=== PATIENT | female | born 1990 | race Caucasian/White ===

== ENCOUNTER 2017-01-14 11:15 | Inpatient (IN) | payer OTHER ==
[2017-01-14 12:04] LABS: % IMMATURE GRANULYOCYTES 0.2 % (0.0-1.1); ABSOLUTE IMMATURE GRANULOCYTES 0.01 10^3/uL (0.00-0.10); ADD DIFF? NO; ADD MORPH? NO; ADD SCAN? NO; ATYPICAL LYMPHOCYTE FLAG 0 (0-99); FRAGMENT RBC FLAG 0 (0-99); HEMATOCRIT 41.2 % (38.0-47.0); LEFT SHIFT FLG 0 (0-99); LIPEMIA HEMOLYSIS FLAG 90 (0-99); MEAN CELL HEMOGLOBIN 29.9 pg (27.9-34.1); MEAN PLATELET VOLUME 9.9 fL (8.7-11.7); PLATELET CLUMPS FLAG 0 (0-99); PLATELET COUNT 239 10^3/uL (150-400); RED BLOOD CELL COUNT 4.68 10^6/uL (4.18-5.33); RED CELL DISTRIBUTION WIDTH 12.7 % (11.5-15.2)
[2017-01-14 12:22] LABS: ANION GAP 10 mEq/L (8-16); CALCIUM 9.6 mg/dL (8.5-10.4); CARBON DIOXIDE 24 mEq/l (22-31); CHLORIDE 105 mEq/L (97-110); CREATININE 0.7 mg/dL (0.6-1.0); ETHANOL SERUM < 10 mg/dL (0-10); GLOMERULAR FILTRATION RATE > 60; GLUCOSE 88 mg/dL (70-100); POTASSIUM 4.2 mEq/L (3.5-5.2); SALICYLATE < 1.0 mg/dL (2.0-20.0); SODIUM 139 mEq/L (134-144)
--- NOTE | 2017-01-14 12:28 | EDPHY ---
H & P HPI/ROS: CHIEF COMPLAINT: Depression, suicidal ideation HISTORY OF PRESENT ILLNESS: Patient is a 26-year-old female who presents emergency department with suicidal thoughts. She states she has been having worsening depression since October. Her suicidal ideation has worsened over the past 1-2 weeks. She has thought about taking an overdose of Seroquel. She has medication left over from a previous hospital admission. She denies any current ingestion or self-harm. She saw her therapist this morning who placed on a mental health hold. REVIEW OF SYSTEMS: My complete review of systems is negative except as mentioned in the HPI. Past Medical/Surgical History: Includes depression and anxiety Smoking Status: Never smoked Physical Exam: Vitals noted GENERAL: Well-appearing, in no acute distress, alert. HEENT: Eyes normal to inspection, normal pharynx, no signs of dehydration. NECK: No thyromegaly, no lymphadenopathy, supple. RESPIRATORY: Clear to auscultation bilaterally, no rales, rhonchi or wheezing. CVS: Regular rate and rhythm, no rubs, murmurs, or gallops. ABDOMEN: Soft, nontender, nondistended, no organomegaly. BACK: Normal to inspection, no CVA tenderness. SKIN: Normal color, warm, dry. No pallor. Patient has a rash on the palm of both hands. This is eczema like. (patient states that the partially from products she uses at work) EXTREMITIES: No pedal edema, no calf tenderness, no Homans sign or cords, no joint swelling. NEURO/PSYCH: Alert and oriented x3, normal mood and affect, normal motor sensory exam. No obvious cranial nerve deficit. Constitutional: Initial Vital Signs Temperature (C) 36.7 C 01/14/17 11:15 Heart Rate 70 01/14/17 11:15 Respiratory Rate 18 01/14/17 11:15 Blood Pressure 137/88 H 01/14/17 11:15 O2 Sat (%) 97 01/14/17 11:15 O2 Delivery Mode Room Air Allergies/Adverse Reactions: No Known Allergies Allergy (Verified 01/14/17 11:22) Home Medications: Medication Instructions Recorded Norgestimate-Ethinyl Estradiol 1 each PO DAILY 05/11/16 [Ortho Tri-Cyclen 28 Tablet] Acetaminophen [Tylenol 325mg (*)] 325 mg PO DAILY PRN 01/14/17 Aspirin [Aspirin 325 mg (*)] 325 mg PO DAILY PRN 01/14/17 Medical Decision Making ED Course/Re-evaluation: In the emergency department I discussed the plan with the patient. I answered all of her questions. She is aware she is on a mental health hold. Laboratory studies were ordered. On recheck the patient was stable. No new complaints. Patient's laboratory studies were unremarkable. She is awaiting psychiatric evaluation. I rechecked the patient while here. She is stable. EMTALA completed. The patient will be transferred to [address] [place] [address]. Differential Diagnosis: My differential includes but is not limited to depression, suicidal ideation, ingestion, overdose, anxiety - Data Points Laboratory Results: Laboratory Results 01/14/17 11:35 01/14/17 11:35 01/14/17 01/14/17 01/14/17 11:35 11:35 11:35 WBC 6.17 10^3/uL 10^3/uL (3.80-9.50) RBC 4.68 10^6/uL 10^6/uL (4.18-5.33) Hgb 14.0 g/dL g/dL (12.6-16.3) Hct 41.2 % % (38.0-47.0) MCV 88.0 fL fL (81.5-99.8) MCH 29.9 pg pg (27.9-34.1) MCHC 34.0 g/dL g/dL (32.4-36.7) RDW 12.7 % % (11.5-15.2) Plt Count 239 10^3/uL 10^3/uL (150-400) MPV 9.9 fL fL (8.7-11.7) Neut % (Auto) 63.1 % % (39.3-74.2) Lymph % (Auto) 29.2 % % (15.0-45.0) Sutton % (Auto) 5.3 % % (4.5-13.0) Eos % (Auto) 1.1 % % (0.6-7.6) Baso % (Auto) 1.1 % % (0.3-1.7) Nucleat RBC Rel Count 0.0 % % (0.0-0.2) Absolute Neuts (auto) 3.89 10^3/uL 10^3/uL (1.70-6.50) Absolute Lymphs (auto) 1.80 10^3/uL 10^3/uL (1.00-3.00) Absolute Monos (auto) 0.33 10^3/uL 10^3/uL (0.30-0.80) Absolute Eos (auto) 0.07 10^3/uL 10^3/uL (0.03-0.40) Absolute Basos (auto) 0.07 10^3/uL 10^3/uL (0.02-0.10) Absolute Nucleated RBC 0.00 10^3/uL 10^3/uL (0-0.01) Immature Gran % 0.2 % % (0.0-1.1) Immature Gran # 0.01 10^3/uL 10^3/uL (0.00-0.10) Sodium 139 mEq/L mEq/L (134-144) Potassium 4.2 mEq/L mEq/L (3.5-5.2) Chloride 105 mEq/L mEq/L (97-110) Carbon Dioxide 24 mEq/l mEq/l (22-31) Anion Gap 10 mEq/L mEq/L (8-16) BUN 12 mg/dL mg/dL (7-23) Creatinine 0.7 mg/dL mg/dL (0.6-1.0) Estimated GFR > 60 Glucose 88 mg/dL mg/dL (70-100) Calcium 9.6 mg/dL mg/dL (8.5-10.4) Salicylates < 1.0 mg/dL L mg/dL (2.0-20.0) Urine Opiates Screen NEGATIVE (NEGATIVE) Acetaminophen < 10 mcg/mL L mcg/mL (10.0-30.0) Urine Barbiturates NEGATIVE (NEGATIVE) Ur Phencyclidine Scrn NEGATIVE (NEGATIVE) Ur Amphetamine Screen NEGATIVE (NEGATIVE) U Benzodiazepines Scrn NEGATIVE (NEGATIVE) Urine Cocaine Screen NEGATIVE (NEGATIVE) U Marijuana (THC) Screen NEGATIVE (NEGATIVE) Ethyl Alcohol < 10 mg/dL mg/dL (0-10) Departure - Departure Disposition: [facility] IP Clinical Impression: Suicidal ideation Depression Qualifiers: Depression Type: unspecified Qualified Code(s): F32.9 - Major depressive disorder, single episode, unspecified Condition: Good Referrals: Darya Antonio MD [Primary Care Provider] - As per Instructions
[2017-01-14] MEDS ORDERED: OLANZapine DISINTEGR 10 MG TAB PO PRN (17:43)
[2017-01-14] MEDS ORDERED: ACETAMINOPHEN 325 MG TAB PO PRN (17:43)
[2017-01-14] MEDS ORDERED: MAGNESIUM HYDROXIDE 30 ML UDCUP PO PRN (17:43)
[2017-01-14] MEDS ORDERED: MAG HYDROX/AL HYDROX/SIMETH 30 ML UDCUP PO PRN (17:43)
[2017-01-14] MEDS ORDERED: NICOTINE POLACRILEX 2 MG GUM B PRN (17:43)
[2017-01-14] MEDS ORDERED: LORazepam 0.5 MG TAB PO PRN (17:43)
[2017-01-14] MEDS: NORETHINDRONE E ESTRADIOL IRON PO SCH (20:46)
[2017-01-15 06:20] VITALS: PULSE 80
[2017-01-15] MEDS ORDERED: NORGESTIMATE ETHINYL ESTRADIOL PO SCH (09:00)
[2017-01-15] MEDS: lamoTRIgine 25 MG TAB PO SCH (12:08)
[2017-01-15] MEDS: NORETHINDRONE E ESTRADIOL IRON PO SCH (12:09)
--- NOTE | 2017-01-15 15:45 | BAPA ---
[f rep st] ADMISSION PSYCHIATRIC ASSESSMENT DATE OF SERVICE: 01/15/2017 CHIEF COMPLAINT: "I'm really depressed and anxious. I'm overwhelmed and stressed." HISTORY OF PRESENT ILLNESS: Patient is a 26-year-old female known to me from previous admission 2 years ago, who presents on this occasion after having been referred by her outpatient therapist due to suicidal ideation. She reports feeling extremely stressed and overwhelmed recently, in large part due to work stress and lack of adequate support. 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 She states that her job has changed a lot over the last 3 years, and recently she had a number of other people installed above her where it directly affected her day-to-day working. She reports a conflict with one of these people and that this has been upsetting to her. In addition to this, her main friend at work quit, and she feels "lonely and isolated" while she is there. She states that she is worried about her own academic progress as she is not in school right now and lacks 32 credits to graduate but feels like she is making no progress. She needs to move out of her apartment due to conflicts with roommates and a sense that she just needs to make a change after having lived there for 4 years. She therefore has been looking for another apartment but is faced with some realities of needing to have other roommates in order to share the expenses. She states that she has not taken medication since June after an outpatient provider was trying different doses of Latuda. She states that she was taking Seroquel when she was here with us and after discharge noted it to be too sedating, so she saw her primary care physician, who placed her on Prozac. She states the Prozac caused her to have rapidly changing moods, and she stopped it and then saw a provider at [facility]. She states that this person placed her on Latuda, and they were adjusting doses but she felt like she was becoming more depressed, not less. For this reason, she stopped the medication and has not sought other treatment since then. She states right now, for the past month, her mood has been going down more severely and she feels helpless, hopeless, and overwhelmed. She reports an increase in suicidal rumination, where she states that she thinks about and dying frequently and has some degree of a plan to overdose on a combination of her leftover Seroquel and alcohol. She has been abstinent from alcohol for more than 6 months after getting a DWAI and having to attend alcohol education classes and do urinalyses. She reports this being an overall positive to her level of functioning and her mood but negative in the sense of some increase in her generalized anxiety. She also reports having some panic attacks at work, especially when she has a conflict with the co-worker. Her sleep has been discontinuous and non-restful. Her appetite has been decreased with a 30 pound weight loss over the last month. She complains of poor energy and motivation, anhedonia, and some difficulty with attention and concentration at work. She feels helpless and hopeless and states at this time that she is struggling to maintain any positive perspective. PAST PSYCHIATRIC HISTORY: The patient has 1 previous admission with us in July 2014 for 2 days. She was diagnosed with major depressive disorder, recurrent, severe, without psychosis at that time and treated with Seroquel. I initially admitted her but Dr. Pelayo was the person who saw her the 2nd day and started medication. It is unclear to me exactly why the Seroquel was chosen , but the patient states that it did help her sleep and did help some with her anxiety but she felt too sedated. Her recent medication history is listed above. She is no longer affiliated with [facility] as her case was closed in August 2016 due to inactivity. She is currently followed by [facility] where she sees an individual.therapist and attends alcohol education groups. She has a history of a possible overdose precipitating the admission in 2013, though it is unclear whether she actually did take an overdose at that time. Otherwise, she has no other suicide attempts. ALLERGIES: No known medical allergies. CURRENT MEDICATIONS: None. PAST MEDICAL HISTORY: Noncontributory for any history of central nervous system disease or other chronic illness. SOCIAL HISTORY: The patient is single. She lives with 3 roommates in a house in [place]. She works as a cook at the [employer]. She has worked there for the last 6 years. She is an [place] major and lacks 32 credits to graduate and states that her schedule at work has been changed several times, making it hard for her to schedule classes. She gets to take 9 credit hours per semester as an employee and is hoping to finish up her degree. She does not currently have any intimate relationships. She has several friends, though she states they live in the [place] and that it is hard for her to see them very often. She does communicate with them electronically. She denies any other stresses except for the financial stress related to her legal problems. SUBSTANCE ABUSE HISTORY: Patient states that she has used alcohol heavily in the past, though not currently. She uses no other drugs. FAMILY HISTORY: Noncontributory. ADMISSION LABORATORY: CBC is normal. Serum chemistries are normal. Urine drug screen is negative for all substances, and alcohol is less than detectable. MENTAL STATUS EXAMINATION: Reveals a healthy-appearing, well-groomed, appropriately dressed female. She interacts well with the examiner and displays good eye contact and a pleasant demeanor. Her affect is blunted, dysphoric, stable, and appropriate. Her mood is described as "anxious and depressed." Her thought process is linear and goal directed. Her thought content reveals no evidence of psychosis. She is alert and oriented to person, place, time, and situation, and her sensorium is clear. Her intellect appears to be at least average, as evidenced by her educational and occupational histories, fund of knowledge, and vocabulary. She continues to endorse some thoughts of suicide, though states that she has no intention or plan to act on them at this time. She does state that she is glad she came to the hospital as she was feeling increasingly unsafe at home. Her insight and judgment appear to be good. IMPRESSION: 1. Major depressive disorder, recurrent, severe, without psychosis. 2. Alcohol use disorder, moderate to severe, in remission. 3. Recent legal problems. 4. Work stress. 5. Lack of supportive relationships. The patient is a pleasant 26-year-old female with a history of recurrent major depression. She presents at this time with a decline in her mood in the setting of increased work stress and lack of support. I think that it is prudent to consider some intervention to stabilize and improve her mood. She has had what appeared to be some hypomania with Prozac, and so she is not wanting to try another antidepressant. I think this is probably love. She also did not tolerate Latuda or Seroquel very well. I have offered her several options, including a trial of Abilify or Lamictal. She prefers a trial of Lamictal to see if this will be helpful in stabilizing and improving her mood and helping her anxiety. The risks, benefits, and alternatives of this were discussed and she agrees to proceed. We will start with 25 mg today in a standard titration and monitor closely. Estimated length of stay is 2-3 days. /[id number]/MODL MTDD
--- NOTE | 2017-01-16 02:51 | BCON ---
[f rep st] BEHAVIORAL HEALTH CONSULTATION INTERNAL MEDICINE CONSULTATION DATE OF CONSULTATION: 01/15/2017 REFERRING PHYSICIAN: Porfirio Beth MD REASON FOR CONSULTATION: Medical clearance for inpatient behavioral health stay. HISTORY OF PRESENT ILLNESS: The patient came to the emergency department yesterday with suicidal thoughts. She had suicidal ideation, worsening over 1- 2 weeks, and was considering an overdose of medication. She had seen her therapist in the morning who placed her on a mental health hold. She was evaluated by the mental health team and admitted for further psychiatric care. Currently, she has no medical concerns. PAST MEDICAL HISTORY: 1. Bronchitis. 2. Mononucleosis. 3. Back injury from falling down steps. 4. Migraine headaches. 5. Depression. PAST SURGICAL HISTORY: She denies any history of surgeries. MEDICATIONS: She was taking control pill, occasional Tylenol, and occasional aspirin. ALLERGIES: There are no known drug allergies. SOCIAL HISTORY: She is a nonsmoker. She uses occasional alcohol. She works as a cook at the [employer], and she is intending to go back to school. FAMILY HISTORY: Noncontributory. REVIEW OF SYSTEMS: She has had about a 30-pound weight loss over several months. She says initially she was on Prozac which had suppressed her appetite and subsequently, she has had a reduced appetite due to feeling depressed. She says she does not exercise, but she is intending to start exercising now that it is springtime. She denies any bowel issues including no nausea, vomiting, constipation, or diarrhea. She denies chest pain, cough, shortness of breath, dyspnea, and otherwise a 10-point review of systems is negative. PHYSICAL EXAM: VITAL SIGNS: Blood pressure is 118/75, heart rate is 80, respiratory rate is 14, oxygen saturation is 97% on room air, temperature is 36.7 degrees centigrade. Her weight is 70.3 kg for a body mass index of 28.3. GENERAL: This is an overweight woman, who appears her chronologic age, cooperative, and in no acute distress. HEENT: Extraocular movements are intact. Pupils are equal, round, and reactive to light. Mucous membranes are moist. Dentition is in good condition. There are no oropharyngeal mucosal lesions and there is no posterior oropharyngeal mucus. NECK: Supple. HEART: There is a regular rate and rhythm with no murmurs, rubs, or gallops. LUNGS: Clear to auscultation bilaterally. ABDOMEN: Soft, nontender, nondistended with normoactive bowel sounds. EXTREMITIES: There is no cyanosis, clubbing, or edema. NEUROLOGIC: She is alert and oriented x3. Cranial nerves 2 through 12 are grossly intact. There is no focal weakness, and sensation is intact to light touch. Gait is within normal limits. LABORATORY STUDIES: From the emergency room, CBC was completely within normal limits. Serum chemistry revealed normal renal function and electrolytes. Toxicology screen in the serum was negative for salicylates, acetaminophen, or ethyl alcohol. Toxicology screen in the urine was negative for any substances of abuse. ASSESSMENT/RECOMMENDATIONS: 1. Mental health issues. Pending further evaluation and management per Psychiatry and the mental health team. 2. Back pain. She is not in any pain currently. Acetaminophen has been ordered and this should be adequate initially to treat back pain. 3. History of headaches. Again, acetaminophen should be sufficient initially. 4. Weight loss, most likely is, as she reports, due to depression and reduced appetite. It is in her interest to continue to lose weight and worth considering avoiding psychiatric medications, which could promote weight gain in this overweight young woman. If weight loss continues beyond volitional weight loss on her part, it might be worthwhile to look for potential other etiologies including studying her thyroid. Last TSH was drawn in 2013. I see no medical contraindications to the patient's continued stay on the inpatient behavioral health unit or to any psychiatric medications or procedures. Thank you very much for including me in the care of this patient, and please do not hesitate to contact me or the hospitalist service should there be a need for further medical evaluation. /[id number]/MODL MTDD
[2017-01-16 06:19] VITALS: BP 110/79; RESP 16; TEMP 98.4; O2SAT 96
[2017-01-16] MEDS: lamoTRIgine 25 MG TAB PO SCH (08:15)
[2017-01-16] MEDS: NORETHINDRONE E ESTRADIOL IRON PO SCH (11:00)
== END 2017-01-16 12:43 | disposition home or self-care (01) | DRG 885 ==
LOC: EDUNIT# → BBEH 17:05
PROVIDERS: ADMIT Psychiatry & Neurology Psychiatry; ATTEND Psychiatry & Neurology Psychiatry
DX: F33.2 Major depressive disorder, recurrent severe without psychotic features (principal); R45.851 Suicidal ideations; R63.4 Abnormal weight loss; Z72.89 Other problems related to lifestyle
CPT/HCPCS: 80305; G0480